=== PATIENT | female | born 1975 | race Caucasian/White ===

== ENCOUNTER 2023-08-19 16:06 | Inpatient (IN) | payer BC ==
[2023-08-19 17:27] LABS: BASE EXCESS VENOUS -10.2 mm/L; BASOPHILS ABSOLUTE AUTO 0.06 K/uL (0.00-0.10); BASOPHILS PERCENT AUTO 0.4 % (0.1-1.3); BICARBONATE,VENOUS 13.6 mmol/L; CARBOXYHEMOGLOBIN 0.9 % (0.0-1.6); HEMATOCRIT 43.2 % (34.3-46.0); HEMOGLOBIN 16.1 g/dL (11.2-15.5); IMMATURE GRAN ABSOLUTE AUTO 0.06 K/uL (0.00-0.23); IMMATURE GRAN PERCENT AUTO 0.4 % (0.0-0.7); LYMPHOCYTES ABSOLUTE AUTO 1.78 K/uL (0.8-3.3); LYMPHOCYTES PERCENT AUTO 13.3 % (11.4-47.7); MEAN CORPUSCULAR HGB CONC 37.3 g/dL (31.6-35.5); MEAN CORPUSCULAR VOLUME 83.1 fL (81.4-99.0); MONOCYTES ABSOLUTE AUTO 0.38 K/uL (0.20-0.90); MONOCYTES PERCENT AUTO 2.8 % (3.3-12.6); NEUTROPHILS ABSOLUTE AUTO 11.07 K/uL (1.0-7.6); NEUTROPHILS PERCENT AUTO 83.1 % (40.0-78.1); O2 SATURATION VENOUS 87.8; OXYHEMOGLOBIN 86.1 %; PCO2 VENOUS 26.1 mm/Hg; PH,VENOUS 7.337 (7.350-7.450); PLATELET COUNT,PLT 291 K/uL (130-375); PO2 VENOUS 55.8 mm/Hg; TOTAL HEMOGLOBIN 16.9 g/dL (12.0-16.0); WHITE BLOOD CELL COUNT,WBC 13.4 K/uL (3.2-11.0)
[2023-08-19] MEDS: Sodium Chloride 0.9% 1,000 ML IV ONE (17:28)
[2023-08-19 17:50] LABS: A/G RATIO 0.9 (1.2-2.2); ALANINE AMINOTRANSFERASE,ALT 49 U/L (12-78); ALBUMIN 3.9 g/dL (3.4-5.0); ALKALINE PHOSPHATASE 228 U/L (46-116); ASPARTATE AMNIOTRANSFERASE,AST 25 U/L (15-37); BILIRUBIN TOTAL 0.7 mg/dL (0.2-1.0); BLOOD UREA NITROGEN,BUN 22 mg/dL (7-18); CALCIUM 10.1 mg/dL (8.5-10.1); CHLORIDE,CL 88 mmol/L (100-108); CREATININE 1.5 mg/dL (0.6-1.0); ESTIMATED GFR 42 mL/min (>60); POTASSIUM,K 3.2 mmol/L (3.6-5.2); PROTEIN TOTAL,TP 8.3 g/dL (6.4-8.2); SODIUM,NA 126 mmol/L (140-148)
[2023-08-19 17:54] LABS: ANION GAP 26.2 mmol/L (5.0-14.0); C-REACTIVE PROTEIN < 0.50 mg/dL (<0.50); CARBON DIOXIDE,CO2 15 mmol/L (21-32); GLUCOSE RANDOM 444 mg/dL (74-106)
[2023-08-19] MEDS ORDERED: 50% Dextrose in Water 50 ML Syringe IVPUSH PRN (17:58)
[2023-08-19] MEDS ORDERED: Glucagon,Human Recombinant 1 MG Vial IM PRN (17:58)
[2023-08-19 18:05] LABS: LYME AB IgG Negative (Negative)
[2023-08-19 18:06] LABS: LYME AB IgM Negative (Negative)
[2023-08-19] MEDS: Insulin Regular, Human 100 Units/ML 3 ML Vial SUBCUT ONE (18:20)
[2023-08-19] MEDS: Ibuprofen 600 MG Tab PO ONE (18:21)
[2023-08-19] MEDS: Potassium Chloride 10 MEQ in Premix Bag 1 BAG IV ONE (18:21)
[2023-08-19 18:23] LABS: APPEARANCE,URINE CLEAR (CLEAR); BILIRUBIN,URINE MODERATE (NEGATIVE); COLOR,URINE YELLOW (YELLOW); GLUCOSE,URINE 500 mg/dL (NEGATIVE); KETONES,URINE 80 mg/dL (NEGATIVE); LEUKOCYTE ESTERASE,URINE NEGATIVE (NEGATIVE); NITRITE,URINE NEGATIVE (NEGATIVE); OCCULT BLOOD,URINE MODERATE (NEGATIVE); PROTEIN,URINE 100 mg/dL (NEGATIVE); UROBILINOGEN,URINE 0.2 EU/dL (0.2-1.0)
[2023-08-19 18:26] LABS: AMPHETAMINES SCREEN, URINE NEGATIVE (NEGATIVE); BARBITURATE SCREEN,URINE NEGATIVE (NEGATIVE); BENZODIAZEPINES SCREEN,URINE NEGATIVE (NEGATIVE); METHADONE SCREEN, URINE NEGATIVE (NEGATIVE); METHAMPHETAMINES SCREEN, URINE NEGATIVE (NEGATIVE); OXYCODONE SCREEN,URINE NEGATIVE (NEGATIVE); PROPOXYPHENE SCREEN,URINE NEGATIVE (NEGATIVE); THC SCREEN,URINE 50 NG/ML NEGATIVE (NEGATIVE)
[2023-08-19 18:28] LABS: EPITHELIAL CELLS,URINE MODERATE; RBC,URINE 0-5 (0-5); WBC,URINE 0-5 (0-5)
[2023-08-19 18:29] LABS: AMORPHOUS SEDIMENT,URINE MODERATE; BACTERIA,URINE RARE; MUCUS,URINE RARE
[2023-08-19] MEDS: Insulin Regular in 0.9 % NACL 100 ML IV SCH (19:25)
[2023-08-19] MEDS ORDERED: Ondansetron 4 MG/2 ML SDV IV PRN (19:42)
[2023-08-19] MEDS ORDERED: Ondansetron 4 MG Tab.DIS PO PRN (19:42)
[2023-08-19] MEDS ORDERED: Albuterol 0.083% 2.5 MG/3 ML Neb Soln NEB PRN (19:42)
[2023-08-19] MEDS ORDERED: Sennosides/Docusate Sodium 50-8.6 MG Tab PO PRN (19:42)
[2023-08-19] MEDS ORDERED: Acetaminophen 325 MG Tab PO PRN (19:42)
[2023-08-19] MEDS ORDERED: Simethicone 125 MG Tab.Chew PO PRN (19:42)
[2023-08-19] MEDS ORDERED: Magnesium Hydroxide 400 MG/5 ML Susp 30 ML Cup PO PRN (19:42)
[2023-08-19] MEDS: Sodium Chloride 0.9% 10 ML Syringe FLUSH ONE (19:44)
[2023-08-19] MEDS: Potassium Chloride 10 MEQ in Premix Bag 1 BAG IV SCH (20:14)
[2023-08-19] MEDS: Amylase/Lipase/Protease 6,000 Unit Cap.CR PO SCH (20:24)
[2023-08-19] MEDS: Gabapentin 300 MG Cap PO SCH (21:57)
[2023-08-19] MEDS: cloNIDine 0.1 MG Tab PO SCH (21:57)
[2023-08-19] MEDS: traZODone 50 MG Tab PO SCH (21:58)
[2023-08-19 23:20] LABS: CALCIUM 9.3 mg/dL (8.5-10.1); CREATININE 1.3 mg/dL (0.6-1.0); EST CRCL DRUG DOSING (CG) 43.24 mL/min; POTASSIUM,K 3.2 mmol/L (3.6-5.2)
[2023-08-19 23:21] LABS: ANION GAP 19.2 mmol/L (5.0-14.0)
[2023-08-19] MEDS: NS + KCl 20mEq/L 1,000 ML IV SCH (23:36)
[2023-08-20] MEDS: Dextrose 5%-0.9% NaCl 1,000 ML IV SCH (00:04)
[2023-08-20] MEDS: LORazepam 0.5 MG Tab PO PRN (00:04)
[2023-08-20 03:19] LABS: CALCIUM 8.8 mg/dL (8.5-10.1); CREATININE 1.2 mg/dL (0.6-1.0); EST CRCL DRUG DOSING (CG) 46.84 mL/min
[2023-08-20 03:21] LABS: ANION GAP 16.8 mmol/L (5.0-14.0); POTASSIUM,K 2.8 mmol/L (3.6-5.2)
[2023-08-20] MEDS: Potassium Chloride 10 MEQ in Premix Bag 1 BAG IV SCH (04:03)
[2023-08-20 07:21] LABS: CALCIUM 9.4 mg/dL (8.5-10.1); CREATININE 1.2 mg/dL (0.6-1.0); EST CRCL DRUG DOSING (CG) 46.84 mL/min; POTASSIUM,K 3.5 mmol/L (3.6-5.2)
[2023-08-20 07:22] LABS: ANION GAP 16.5 mmol/L (5.0-14.0)
[2023-08-20] MEDS: Pantoprazole 40 MG Tab.CR PO SCH (07:47)
[2023-08-20] MEDS: Rosuvastatin 5 MG Tab PO SCH (08:03)
[2023-08-20] MEDS: Cetirizine 10 MG Tab PO SCH (08:04)
[2023-08-20] MEDS: Losartan 25 MG Tab PO SCH (08:04)
[2023-08-20] MEDS: Sertraline 50 MG Tab PO SCH (08:21)
[2023-08-20] MEDS: Potassium Chloride 20 MEQ Tab.ER PO ONE ×2 (08:21→13:06)
[2023-08-20] MEDS: Sodium Chloride 0.9% 100 ML IV ONE (11:12)
[2023-08-20] MEDS: Benzocaine/Cetylpyridinium/Menthol Lozenge MUCMEM PRN (11:25)
[2023-08-20 11:27] LABS: ANION GAP 12.2 mmol/L (5.0-14.0); CALCIUM 8.5 mg/dL (8.5-10.1); CREATININE 1.2 mg/dL (0.6-1.0); EST CRCL DRUG DOSING (CG) 46.84 mL/min; POTASSIUM,K 3.2 mmol/L (3.6-5.2)
[2023-08-20] MEDS: Insulin Glargine,Human Rec. Analog 100 Units/ML 3 ML Pen SUBCUT SCH (13:05)
[2023-08-20] MEDS: Iopamidol 755 Mg/ML 100 ML Bottle IV ONE (13:33)
[2023-08-20] MEDS: NICOTINE PATCH CHECK TOP SCH (16:42)
[2023-08-20] MEDS: Nicotine 14 MG/24 Hr Patch TRDERM PRN (16:43)
[2023-08-20] MEDS: Insulin Lispro 100 Unit/ML 3 ML KwikPen SUBCUT SCH (16:43)
[2023-08-20] MEDS: Clotrimazole 1% Crm 30 GM Tube TOP SCH (18:34)
[2023-08-20] MEDS: Ibuprofen 600 MG Tab PO PRN (21:35)
[2023-08-21] MEDS: Clotrimazole 1% Crm 30 GM Tube TOP SCH (08:27)
[2023-08-23 08:19] LABS: ANAPLASMA PHAGOCYTOPHILUM PCR Not Detected; BABESIA MICROTI BY PCR Not Detected; BABESIA SPECIES BY PCR Not Detected; EHRLICHIA CHAFFEENSIS BY PCR Not Detected; EHRLICHIA EWINGII/CANIS BY PCR Not Detected; EHRLICHIA MURIS-LIKE BY PCR Not Detected
== END 2023-08-21 11:05 | disposition home or self-care (01) | DRG 420 ==
LOC: JP.ED 16:06 → JP.ICU 18:38
PROVIDERS: ADMIT Internal Medicine; ATTEND Internal Medicine
DX: E10.10 Type 1 diabetes mellitus with ketoacidosis without coma (principal); N17.9 Acute kidney failure, unspecified; E87.6 Hypokalemia; E78.00 Pure hypercholesterolemia, unspecified; H54.7 Unspecified visual loss; I10 Essential (primary) hypertension; K21.9 Gastro-esophageal reflux disease without esophagitis; F17.210 Nicotine dependence, cigarettes, uncomplicated; F41.9 Anxiety disorder, unspecified; F32.A Depression, unspecified; E86.0 Dehydration; Z88.5 Allergy status to narcotic agent; Z79.51 Long term (current) use of inhaled steroids; Z79.899 Other long term (current) drug therapy; Z79.4 Long term (current) use of insulin
CPT/HCPCS: 36415; 71045; 71045-26; 80048; 80053; 80305-QW; 81001; 82009; 82803; 82947; 83605; 84145; 85025; 86140; 86618; 87468; 87469; 87484; 87798; 93005; 93010; 96361; 96365; 99222; 99232; 99238; 99285; 99285-25; A9270-GY; J1815; J1815-GY; J3480; J7030